=== PATIENT | female | born 1955 | race Two or more races ===

== ENCOUNTER 2023-03-04 22:57 | Emergency (ER) | payer SELFPAY ==
[~2023-03-04] VITALS: Ht 154.9 cm; Wt 71.0 kg
[2023-03-04] MEDS ORDERED: MAALOX PLUS or MAALOX 30 ML PO ONE (23:15)
[2023-03-04] MEDS ORDERED: LIDOCAINE VISCOUS 2% 15ML UD PO ONE (23:15)
[2023-03-04] MEDS ORDERED: DONNATAL 5ml ORAL Elix (BELLADONNA ALK-PHENOBARB) PO ONE (23:15)
[2023-03-04 23:52] LABS: Albumin 3.9 g/dL (3.4-5.0); BUN/Creatinine Ratio 26.2 (10.0-20.0); Calcium 9.4 mg/dL (8.5-10.1); Potassium 3.7 mmol/L (3.5-5.1)
[2023-03-04 23:53] LABS: Basophils # (auto) 0 10 ^3/uL (0-0.2); Basophils % (auto) 0.3 % (0.0-2.0); Eosinophils # (auto) 0.3 10 ^3/uL (0-0.8); Hematocrit 37.6 % (36.0-46.0); Hemoglobin 12.3 g/dL (12.2-16.2); Lymphocytes # (auto) 1.9 10 ^3/uL (0.4-5.4); Lymphocytes % (auto) 13.8 % (10.0-50.0); Mean Corpuscular Hemoglobin 29.3 pg (28.0-32.0); Mean Corpuscular Hgb Conc. 32.7 g/dL (32.0-36.0); Mean Corpuscular Volume 89.4 fL (80.0-100.0); Monocytes # (auto) 0.8 10 ^3/uL (0-1.3); Monocytes % (auto) 5.4 % (0.0-12.0); Neutrophils % (auto) 78.5 % (37.0-80.0); Red Cell Distribution Width 13.9 % (11.8-14.3)
[2023-03-04 23:55] LABS: Bilirubin, Total 0.4 mg/dL (0.2-1.0); Total Protein 7.9 g/dL (6.4-8.2)
[2023-03-05 00:18] LABS: Urine Amorphous Crystal MOD /hpf (None Seen); Urine Bacteria NONE SEEN /hpf (None Seen); Urine Blood Negative /uL (Negative); Urine Mucus FEW (None Seen); Urine Specific Gravity 1.023 (1.001-1.035); Urine WBC 4 /hpf (0 - 5)
[2023-03-05] MEDS ORDERED: OMEP-335 PO (00:57)
[2023-03-05] MEDS ORDERED: DICY10CA PO (00:57)
[2023-03-05 01:31] VITALS: BP 126/71; PULSE 86; RESP 18; TEMP 98.2; O2SAT 98
== END 2023-03-05 01:33 | disposition home or self-care (01) ==
LOC: ER 22:57
DX: R10.13 Epigastric pain (principal); K21.9 Gastro-esophageal reflux disease without esophagitis
CPT/HCPCS: 36415; 80053; 81001; 83690; 84484; 85025